=== PATIENT | male | born 1960 | race Caucasian/White ===

== ENCOUNTER 2018-11-23 18:33 | Outpatient (REF) | payer MEDICAID, SELFPAY | END 2018-11-23 18:53 | LOC: NCHCN 18:33 | PROVIDERS: PCP Family Medicine; Visit Provider Family Medicine | DX: R53.83 Other fatigue (principal) | CPT/HCPCS: 84443 ==

== ENCOUNTER 2020-08-30 10:35 | Outpatient (REF) | payer MEDICAID, SELFPAY ==
[2020-08-30 13:56] LABS: Hemoglobin A1C 6.1 % (<5.7)
[2020-08-30 14:05] LABS: ALT 41 U/L (16-63); AST 20 U/L (15-37); Albumin 4.3 g/dL (3.4-5.0); Alkaline Phosphatase 55 U/L (46-116); Anion Gap 9.2 mmol/L (3-11); BUN 26 mg/dL (7-18); Bilirubin, Total 0.7 mg/dL (0.2-1.0); CO2 26.8 mmol/L (21.0-32.0); CREATININE 0.91 mg/dL (0.70-1.30); Calcium 8.4 mg/dL (8.5-10.1); Calculated LDL 150 mg/dL (<100); Chloride 103 mmol/L (98-107); Cholesterol 220 mg/dL (<200); Glucose 99 mg/dL (74-106); HDL Cholesterol 52 mg/dL (40-60); Potassium 4.1 mmol/L (3.5-5.1); Sodium 139 mmol/L (136-145); TSH 1.29 uIU/mL (0.36-3.74); Total Protein 6.9 g/dL (6.4-8.2); Triglyceride 94 mg/dL (<150)
== END 2020-08-30 10:55 ==
LOC: NCHCN 10:35
PROVIDERS: PCP Family Medicine; Visit Provider Family Medicine
DX: R73.03 Prediabetes (principal); E03.9 Hypothyroidism, unspecified; E78.5 Hyperlipidemia, unspecified
CPT/HCPCS: 80053; 80061; 83036; 84443

== ENCOUNTER 2021-04-22 16:12 | Outpatient (REF) | payer MEDICAID, SELFPAY ==
[2021-04-22 15:57] LABS: Hemoglobin A1C 5.8 % (<5.7)
[2021-04-22 15:59] LABS: ALT 55 U/L (16-63); Calculated LDL 121 mg/dL (<100); Cholesterol 190 mg/dL (<200); HDL Cholesterol 51 mg/dL (40-60); Triglyceride 93 mg/dL (<150)
== END 2021-04-22 16:13 | disposition home or self-care (01) ==
LOC: NCHCN 16:12
PROVIDERS: PCP Family Medicine; Visit Provider Family Medicine
DX: R73.03 Prediabetes (principal); R53.83 Other fatigue; E78.5 Hyperlipidemia, unspecified; Z86.59 Personal history of other mental and behavioral disorders
CPT/HCPCS: 80061; 83036; 84460

== ENCOUNTER 2021-07-02 12:12 | Outpatient (REF) | payer MEDICAID, SELFPAY ==
[2021-07-04 16:02] LABS: COVID-19 RT-PCR UVMMC Result Negative (Negative)
== END 2021-07-02 12:13 | disposition home or self-care (01) ==
LOC: NCHCN 12:12
PROVIDERS: PCP Family Medicine; Visit Provider Family Medicine
DX: Z20.822 Contact with and (suspected) exposure to COVID-19 (principal)
CPT/HCPCS: U0003

== ENCOUNTER 2021-12-16 18:53 | Outpatient (REF) | payer MEDICAID, SELFPAY ==
[2021-12-16 17:57] LABS: Anion Gap 6.9 mmol/L (3-11); BUN 23 mg/dL (7-18); CO2 28.1 mmol/L (21.0-32.0); CREATININE 0.7 mg/dL (0.70-1.30); Calcium 9.1 mg/dL (8.5-10.1); Chloride 105 mmol/L (98-107); Glucose 106 mg/dL (74-106); Potassium 4.6 mmol/L (3.5-5.1); Sodium 140 mmol/L (136-145)
[2021-12-17 20:12] LABS: PSA, Screening 5.4 ng/mL (<=4.5)
== END 2021-12-16 18:54 | disposition home or self-care (01) ==
LOC: NCHCN 18:53
PROVIDERS: PCP Family Medicine; Visit Provider Family Medicine
DX: R73.03 Prediabetes (principal); E03.9 Hypothyroidism, unspecified; Z12.5 Encounter for screening for malignant neoplasm of prostate
CPT/HCPCS: 80048; 84153; 83036; 84443

== ENCOUNTER 2023-03-09 13:17 | Outpatient (REF) | payer MEDICAID, SELFPAY ==
[2023-03-09 15:11] LABS: Hemoglobin A1C 5.8 % (<5.7)
[2023-03-09 15:21] LABS: Anion Gap 5.8 mmol/L (3-11); BUN 19 mg/dL (7-18); CO2 30.2 mmol/L (21.0-32.0); CREATININE 0.8 mg/dL (0.70-1.30); Calcium 8.7 mg/dL (8.5-10.1); Calculated LDL 67 mg/dL (<100); Chloride 106 mmol/L (98-107); Cholesterol 137 mg/dL (<200); Estimated GFR 100.06 (mL/min/1.73m2); Glucose 93 mg/dL (74-106); HDL Cholesterol 51 mg/dL (40-60); Sodium 142 mmol/L (136-145); TSH 2.23 uIU/mL (0.36-3.74); Triglyceride 97 mg/dL (<150)
[2023-03-10 10:06] LABS: PSA, Screening 6.2 ng/mL (<=4.5)
== END 2023-03-09 13:18 | disposition home or self-care (01) ==
LOC: NCHCN 13:17
PROVIDERS: PCP Family Medicine; Visit Provider Family Medicine
DX: E03.9 Hypothyroidism, unspecified (principal); E78.5 Hyperlipidemia, unspecified; R73.03 Prediabetes; Z12.5 Encounter for screening for malignant neoplasm of prostate; Z00.00 Encounter for general adult medical examination without abnormal findings
CPT/HCPCS: 80048; 80061; 84153; 83036; 84443

== ENCOUNTER 2023-08-05 11:29 | Outpatient (REF) | payer MEDICAID, SELFPAY | END 2023-08-05 11:30 | disposition home or self-care (01) | LOC: NCHCN 11:29 | PROVIDERS: PCP Family Medicine; Visit Provider Family Medicine | DX: Z12.5 Encounter for screening for malignant neoplasm of prostate (principal) | CPT/HCPCS: 84153 ==

== ENCOUNTER 2023-08-09 14:54 | Outpatient (REF) | payer MEDICAID, SELFPAY ==
[2023-08-12 12:41] LABS: Free PSA/PSA Ratio 0.18 ratio
== END 2023-08-09 14:55 | disposition home or self-care (01) ==
LOC: NCHCN 14:54
PROVIDERS: PCP Family Medicine; Visit Provider Family Medicine
DX: R97.20 Elevated prostate specific antigen [PSA] (principal)
CPT/HCPCS: 84154

== ENCOUNTER 2023-12-15 08:36 | Outpatient (REF) | payer MEDICAID, SELFPAY ==
[2023-12-15 23:25] LABS: PSA, Diagnostic 7.8 ng/mL (<=4.5)
== END 2023-12-15 08:37 | disposition home or self-care (01) ==
LOC: NCHCN 08:36
PROVIDERS: PCP Family Medicine; Visit Provider Physician Assistant
DX: R97.20 Elevated prostate specific antigen [PSA] (principal)
CPT/HCPCS: 84153

== ENCOUNTER 2024-01-10 15:25 | Outpatient (REF) | payer MEDICAID, SELFPAY ==
[2024-01-10 22:03] LABS: Calculated LDL 186 mg/dL (<100); Cholesterol 268 mg/dL (<200); HDL Cholesterol 58 mg/dL (40-60); Triglyceride 124 mg/dL (<150)
[2024-01-11 18:26] LABS: PSA, Screening 7.7 ng/mL (<=4.5)
== END 2024-01-10 15:26 | disposition home or self-care (01) ==
LOC: NCHCN 15:25
PROVIDERS: Physician Assistant; PCP Family Medicine; Visit Provider Family Medicine
DX: E78.5 Hyperlipidemia, unspecified (principal); R97.20 Elevated prostate specific antigen [PSA]
CPT/HCPCS: 80061; 84153

== ENCOUNTER 2024-04-10 19:58 | Outpatient (REF) | payer MEDICAID, SELFPAY ==
[2024-04-10 22:03] LABS: Calculated LDL 74 mg/dL (<100); Cholesterol 150 mg/dL (<200); HDL Cholesterol 51 mg/dL (40-60); TSH 1.98 uIU/Ml (0.36-3.74); Triglyceride 126 mg/dL (<150)
[2024-04-11 19:10] LABS: PSA, Screening 5.4 ng/mL (<=4.5)
== END 2024-04-10 19:59 | disposition home or self-care (01) ==
LOC: NCHCN 19:58
PROVIDERS: PCP Family Medicine; Visit Provider Family Medicine
DX: R97.20 Elevated prostate specific antigen [PSA] (principal); E78.5 Hyperlipidemia, unspecified; E03.9 Hypothyroidism, unspecified
CPT/HCPCS: 80061; 84153; 84443

== ENCOUNTER 2024-07-28 13:59 | Outpatient (REF) | payer MEDICAID, SELFPAY | END 2024-07-28 14:00 | disposition home or self-care (01) | LOC: NCHCN 13:59 | PROVIDERS: PCP Family Medicine; Visit Provider Family Medicine | DX: R97.20 Elevated prostate specific antigen [PSA] (principal) | CPT/HCPCS: 84153 ==

== ENCOUNTER 2025-02-06 14:55 | Outpatient (REF) | payer MEDICAID, SELFPAY ==
[2025-02-09 21:38] LABS: Free PSA/PSA Ratio 0.25 ratio
== END 2025-02-06 14:56 | disposition home or self-care (01) ==
LOC: NCHCN 14:55
PROVIDERS: PCP Family Medicine; Visit Provider Family Medicine
DX: R97.20 Elevated prostate specific antigen [PSA] (principal)
CPT/HCPCS: 84154

== ENCOUNTER 2025-02-27 15:38 | Outpatient (REF) | payer MEDICAID, SELFPAY ==
[2025-02-27 21:25] LABS: Anion Gap 8.9 mmol/L (3-11); BUN 22 mg/dL (7-18); CO2 27.1 mmol/L (21.0-32.0); Calcium 9.0 mg/dL (8.5-10.1); Calculated LDL 71 mg/dL (<100); Chloride 104 mmol/L (98-107); Cholesterol 143 mg/dL (<200); Estimated GFR 98.83 (mL/min/1.73m2); Glucose 109 mg/dL (74-106); HDL Cholesterol 57 mg/dL (>or=40); Magnesium 2.1 mg/dL (1.8-2.4); Potassium 3.9 mmol/L (3.5-5.1); Sodium 140 mmol/L (136-145); TSH 2.93 uIU/mL (0.36-3.74); Triglyceride 77 mg/dL (<150)
== END 2025-02-27 15:39 | disposition home or self-care (01) ==
LOC: NCHCN 15:38
PROVIDERS: PCP Family Medicine; Visit Provider Family Medicine
DX: R25.2 Cramp and spasm (principal); E03.9 Hypothyroidism, unspecified; E78.5 Hyperlipidemia, unspecified
CPT/HCPCS: 80048; 80061; 83735; 84443